=== PATIENT | male | born 1995 | race Caucasian/White ===

== ENCOUNTER 2021-05-24 20:03 | Emergency (ER) | payer SELFPAY ==
[~2021-05-24] VITALS: Ht 175.3 cm; Wt 68.2 kg
[2021-05-24 20:10] VITALS: BP 142/73
== END 2021-05-24 20:35 ==
LOC: ER 20:04
DX: M79.604 Pain in right leg (principal); V89.2XXA Person injured in unspecified motor-vehicle accident, traffic, initial encounter; Y93.89 Activity, other specified; Y92.89 Other specified places as the place of occurrence of the external cause; Y99.8 Other external cause status
CPT/HCPCS: 99283

== ENCOUNTER 2025-03-01 17:47 | Emergency (ER) | payer OTHER ==
[~2025-03-01] VITALS: Ht 175.3 cm; Wt 68.2 kg
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
[2025-03-01 18:27] VITALS: BP 148/98; PULSE 82; RESP 18; TEMP 98.7; O2SAT 98
== END 2025-03-01 18:30 | disposition home or self-care (01) ==
LOC: ER 17:48
DX: S01.81XA Laceration without foreign body of other part of head, initial encounter (principal); V89.2XXA Person injured in unspecified motor-vehicle accident, traffic, initial encounter; Y93.89 Activity, other specified; Y92.89 Other specified places as the place of occurrence of the external cause; Y99.8 Other external cause status
CPT/HCPCS: 99283